=== PATIENT | male | born 1970 | race Caucasian/White ===

== ENCOUNTER → 2019-12-15 | Outpatient (CLI) | payer BC ==
[2019-12-15 12:13] LABS: HEMOGLOBIN 15.5 g/dL (13.5-18.0); MEAN CELL VOLUME 87 fl (78-100); MEAN CORPUSCULAR HEMOGLOBIN 29 pg (27-31); MEAN CORPUSCULAR HGB CONC 34 g/dL (33-37); MEAN PLATELET VOLUME 10.7 fl (7.4-10.4); PLATELET COUNT 260 K/mm3 (130-400); RED BLOOD COUNT 5.28 M/mm3 (4.20-5.60); RED CELL DISTRIBUTION WIDTH 13.6 % (11.5-14.5); WHITE BLOOD COUNT 6.4 K/mm3 (4.8-10.8)
[2019-12-15 12:16] LABS: POTASSIUM 3.8 mmol/L (3.5-5.1)
[2019-12-15 12:17] LABS: ALBUMIN 4.2 g/dL (3.5-5.0)
[2019-12-15 12:18] LABS: CALCIUM 9.5 mg/dL (8.3-10.5)
[2019-12-15 12:19] LABS: TOTAL PROTEIN 7.2 g/dL (6.4-8.3)
[2019-12-15 12:21] LABS: TOTAL BILIRUBIN 0.5 mg/dL (0.2-1.2)
[2019-12-15 12:28] LABS: URINE APPEARANCE CLEAR; URINE BILIRUBIN NEGATIVE (NEGATIVE); URINE BLOOD NEGATIVE (NEGATIVE); URINE COLOR YELLOW; URINE GLUCOSE NEGATIVE (NEGATIVE); URINE KETONE NEGATIVE (NEGATIVE); URINE LEUKOCYTE ESTERASE NEGATIVE (NEGATIVE); URINE NITRATE NEGATIVE (NEGATIVE); URINE PROTEIN(semi-quant) NEGATIVE (NEGATIVE); URINE UROBILINOGEN NORMAL (NORMAL); URINE WBC 0-1 /hpf (0-3)
[2019-12-15 12:39] LABS: LYMPHOCYTE 42 % (20-51); MONOCYTE 15 % (3-10); NEUTROPHILS 40 % (42-75)
== END ==
LOC: LAB 11:32
PROVIDERS: Family Medicine
DX: Z00.00 Encounter for general adult medical examination without abnormal findings (principal); Z13.220 Encounter for screening for lipoid disorders; E05.00 Thyrotoxicosis with diffuse goiter without thyrotoxic crisis or storm; R97.20 Elevated prostate specific antigen [PSA]

== ENCOUNTER → 2020-02-25 | Outpatient (CLI) | payer BC | LOC: LAB 10:12 | DX: R97.20 Elevated prostate specific antigen [PSA] (principal) ==

== ENCOUNTER → 2020-07-25 | Outpatient (CLI) | payer BC ==
[2020-07-25 13:59] LABS: BASO # 0.07 (0.02-0.10); EOS # 0.17 (0.04-0.40); HEMATOCRIT 45.1 % (42.0-52.0); HEMOGLOBIN 15.4 g/dL (13.5-18.0); LYMPH# 2.23 (1.50-4.00); MEAN CELL VOLUME 86 fl (78-100); MEAN CORPUSCULAR HEMOGLOBIN 30 pg (27-31); MEAN CORPUSCULAR HGB CONC 34 g/dL (33-37); MONO # 0.86 (0.20-0.80); NEU # 2.24 (1.40-6.50); PLATELET COUNT 258 K/mm3 (130-400); RED BLOOD COUNT 5.22 M/mm3 (4.20-5.60); RED CELL DISTRIBUTION WIDTH 12.8 % (11.5-14.5); WHITE BLOOD COUNT 5.6 K/mm3 (4.8-10.8)
[2020-07-25 14:10] LABS: POTASSIUM 3.7 mmol/L (3.5-5.1)
[2020-07-25 14:11] LABS: CALCIUM 9.5 mg/dL (8.3-10.5)
[2020-07-25 14:12] LABS: TOTAL PROTEIN 7.2 g/dL (6.4-8.3)
[2020-07-25 14:14] LABS: TOTAL BILIRUBIN 0.5 mg/dL (0.2-1.2)
== END ==
LOC: LAB 13:46
PROVIDERS: Family Medicine
DX: Z12.9 Encounter for screening for malignant neoplasm, site unspecified (principal); I10 Essential (primary) hypertension

== ENCOUNTER → 2020-09-13 | Outpatient (CLI) | payer BC | LOC: LAB 11:36 | DX: R97.20 Elevated prostate specific antigen [PSA] (principal) ==

== ENCOUNTER → 2024-02-11 | Outpatient (CLI) | payer BC ==
[2024-02-11 10:03] LABS: BASO # 0.02 K/mm3 (0.02-0.10); EOS # 0.13 K/mm3 (0.04-0.40); EOS % 2.5 % (0.0-4.0); HEMATOCRIT 43.9 % (42.0-52.0); HEMOGLOBIN 15.6 g/dL (13.5-18.0); LYMPH# 1.98 K/mm3 (1.50-4.00); MEAN CELL VOLUME 89 fl (78-100); MEAN CORPUSCULAR HEMOGLOBIN 32 pg (27-31); MEAN CORPUSCULAR HGB CONC 36 g/dL (33-37); MEAN PLATELET VOLUME 10.3 fl (7.4-10.4); MONO # 0.83 K/mm3 (0.20-0.80); PLATELET COUNT 224 K/mm3 (130-400); RED BLOOD COUNT 4.94 M/mm3 (4.20-5.60); RED CELL DISTRIBUTION WIDTH 12.9 % (11.5-14.5); WHITE BLOOD COUNT 5.3 K/mm3 (4.8-10.8)
[2024-02-11 10:11] LABS: ALBUMIN 4.1 g/dL (3.5-5.0)
[2024-02-11 10:12] LABS: CALCIUM 9.8 mg/dL (8.3-10.5)
[2024-02-11 10:13] LABS: TOTAL PROTEIN 7.4 g/dL (6.4-8.3)
[2024-02-11 10:15] LABS: TOTAL BILIRUBIN 0.6 mg/dL (0.2-1.2)
[2024-02-11 10:16] LABS: URINE APPEARANCE CLEAR (CLEAR); URINE BILIRUBIN NEGATIVE (NEGATIVE); URINE BLOOD NEGATIVE (NEGATIVE); URINE COLOR YELLOW (YELLOW); URINE GLUCOSE NEGATIVE (NEGATIVE); URINE KETONE NEGATIVE (NEGATIVE); URINE LEUKOCYTE ESTERASE NEGATIVE (NEGATIVE); URINE NITRATE NEGATIVE (NEGATIVE); URINE PROTEIN(semi-quant) NEGATIVE (NEGATIVE)
[2024-02-11 10:17] LABS: URINE MUCUS PRESENT (NOT PRESENT)
== END ==
LOC: LAB 09:49
PROVIDERS: Physician Assistant Medical
DX: Z00.00 Encounter for general adult medical examination without abnormal findings (principal); E89.0 Postprocedural hypothyroidism